=== PATIENT | male | born 1995 | race Two or more races ===

== ENCOUNTER 2018-11-10 10:25 | Emergency (ER) | payer MEDICAID ==
[~2018-11-10] VITALS: Ht 182.9 cm; Wt 108.9 kg
[2018-11-10 12:23] VITALS: BP 146/82
== END 2018-11-10 14:15 | disposition left against medical advice (07) ==
LOC: ER 10:25
DX: S82.852D Displaced trimalleolar fracture of left lower leg, subsequent encounter for closed fracture with routine healing (principal); W19.XXXD Unspecified fall, subsequent encounter
CPT/HCPCS: 29515; 73590; 73630

== ENCOUNTER 2019-11-07 08:57 | Emergency (ER) | payer MEDICAID ==
[~2019-11-07] VITALS: Ht 185.4 cm; Wt 97.5 kg
[2019-11-07 09:05] VITALS: BP 145/87
== END 2019-11-07 10:27 | disposition home or self-care (01) ==
LOC: ER 08:57
DX: L02.31 Cutaneous abscess of buttock (principal); F17.210 Nicotine dependence, cigarettes, uncomplicated

== ENCOUNTER 2021-03-14 17:55 | Emergency (ER) | payer MEDICAID ==
[~2021-03-14] VITALS: Ht 185.4 cm; Wt 104.3 kg
[2021-03-14 20:10] VITALS: BP 100/60
== END 2021-03-14 20:52 | disposition home or self-care (01) ==
LOC: ER 17:55
DX: S42.022A Displaced fracture of shaft of left clavicle, initial encounter for closed fracture (principal); R00.0 Tachycardia, unspecified; F17.210 Nicotine dependence, cigarettes, uncomplicated; W18.39XA Other fall on same level, initial encounter; Y93.89 Activity, other specified; Y92.89 Other specified places as the place of occurrence of the external cause; Y99.8 Other external cause status
CPT/HCPCS: 29125; 73030; 93005

== ENCOUNTER 2022-09-14 08:32 | Emergency (ER) | payer MEDICAID ==
[~2022-09-14] VITALS: Ht 185.4 cm; Wt 109.0 kg
[2022-09-14 09:25] LABS: Basophils # (auto) 0.1 10 ^3/uL (0-0.2); Basophils % (auto) 0.4 % (0.0-2.0); Eosinophils # (auto) 0.1 10 ^3/uL (0-0.8); Hemoglobin 16.2 g/dL (13.5-17.5); Lymphocytes # (auto) 3.3 10 ^3/uL (0.4-5.4); Lymphocytes % (auto) 23.3 % (10.0-50.0); Mean Corpuscular Hemoglobin 31.2 pg (28.0-32.0); Mean Corpuscular Hgb Conc. 34.5 g/dL (32.0-36.0); Mean Corpuscular Volume 90.5 fL (80.0-100.0); Monocytes # (auto) 0.8 10 ^3/uL (0-1.3); Monocytes % (auto) 5.4 % (0.0-12.0); Neutrophils # (auto) 9.9 10 ^3/uL (1.6-8.6); Neutrophils % (auto) 69.9 % (37.0-80.0); Nucleated Red Blood Cells % 0.1 %; Red Blood Cells 5.19 10^6/uL (4.5-5.90); Red Cell Distribution Width 12.9 % (11.8-14.3); White Blood Cell 14.2 10^3/uL (4.4-10.8)
[2022-09-14 10:57] LABS: Urine Bacteria FEW /hpf (None Seen); Urine Blood Negative /uL (Negative); Urine Mucus FEW (None Seen); Urine Specific Gravity 1.009 (1.001-1.035); Urine WBC 1 /hpf (0 - 3)
[2022-09-14 11:16] LABS: Albumin 4.5 g/dL (3.4-5.0); Calcium 9.6 mg/dL (8.5-10.1); Potassium 4.6 mmol/L (3.5-5.1)
[2022-09-14 11:31] LABS: Bilirubin, Total 0.6 mg/dL (0.2-1.0); Total Protein 8.2 g/dL (6.4-8.2)
[2022-09-14] MEDS: SODIUM CHLORIDE 0.9% 1,000 ML IV ONE ×2 (16:18→16:31)
[2022-09-14] MEDS ORDERED: cefTRIAXone SOD 1,000 MG VL IM ONE (16:30)
[2022-09-14 16:42] VITALS: BP 153/91
[2022-09-14 22:11] LABS: BUN/Creatinine Ratio 14.6
== END 2022-09-14 16:14 | disposition home or self-care (01) ==
LOC: ER 08:32
DX: K42.9 Umbilical hernia without obstruction or gangrene (principal); F17.210 Nicotine dependence, cigarettes, uncomplicated
CPT/HCPCS: 36415; 74176; 80053; 81001; 83690; 85025; 93005; 96372; 99285; J0696